=== PATIENT | male | born 1950 | race Caucasian/White ===

== ENCOUNTER 2021-01-24 06:19 | Outpatient (REF) | payer MEDICARE, SELFPAY ==
[2021-01-24 07:42] LABS: Glucose Urine UA NEG (NEG); Leukocyte Esterase Urine NEG (NEG); Nitrite Urine NEG (NEG); Specific Gravity - Urine 1.025 (1.005-1.025); Urine Blood NEG (NEG); Urine Ketones NEG (NEG); Urine Protein NEG (NEG-TRACE)
[2021-01-24 07:43] LABS: MANUAL DIFF FLAG NO
[2021-01-24 07:48] LABS: Basophils Percent Auto 0.5 % (0-2); Eosinophils Absolute Auto 0.2 X10*3/uL (0.0-0.4); Eosinophils Percent Auto 3.7 % (0-4); Hematocrit 42.2 % (42-52); Hemoglobin 13.8 g/dl (14.0-18.0); Imm Gran Abs Auto 0.05 X10*3/uL (0.00-0.03); Imm Gran Pct Auto 0.8 % (0.0-0.4); Lymphocytes Absolute Auto 1.4 X10*3/uL (1.2-4.9); Mean Corpuscular HGB Conc 32.7 g/dl (31.0-36.0); Mean Corpuscular Hemoglobin 29.8 pg (27.0-33.0); Mean Corpuscular Volume 91.1 fL (80-98); Mean Platelet Volume 8.5 fL (9.4-12.4); Monocytes Absolute Auto 0.8 X10*3/uL (0.1-1.2); Monocytes Percent Auto 12.6 % (2-11); Neutrophils Absolute Auto 3.5 X10*3/uL (2.0-8.3); Neutrophils Percent Auto 59.4 % (45-73); Platelet Count 302 X10*3/uL (160-400); Red Blood Count 4.63 X10*6/uL (4.60-5.80)
[2021-01-24 07:53] LABS: Estimated Average Glucose 105 mg/dL; Hemoglobin A1c % 5.3 %
[2021-01-24 07:57] LABS: Appearance Urine CLEAR; Color Urine YELLOW
[2021-01-24 08:00] LABS: RBC Urine 0 /HPF (0); Sperm Urine NOTED; WBC Urine 0 /HPF (0-4)
[2021-01-24 08:09] LABS: Alanine Aminotransferase 18 U/L (0-40); Alkaline Phosphatase 65 U/L (39-117); Anion Gap 12 (12-20); Aspartate Amino Transferase 20 U/L (5-37); Bilirubin Total 0.4 mg/dL (0.0-1.0); Blood Urea Nitrogen 26 mg/dL (9-16); Calcium 8.9 mg/dL (8.4-10.2); Carbon Dioxide 28 mmol/L (22-29); Chloride 104 mmol/L (96-108); Cholesterol 200 mg/dL; Estimated Glomerular Filt Rate > 60; Glucose Random 106 mg/dL (60-115); HDL Cholesterol 58 mg/dL; LDL Cholesterol Calculated 132 mg/dl; Potassium 4.6 mmol/L (3.3-5.1); Sodium 139 mmol/L (135-145); Total Protein 6.6 g/dL (6.5-8.0); Triglycerides 53 mg/dL
[2021-01-24 08:31] LABS: Free T4 (Free Thyroxine) 0.82 ng/dL (0.71-1.85); Thyroid Stimulating Hormone 2.22 uIU/mL (0.32-4.0)
[2021-01-25 18:05] LABS: Folate > 20.0 ng/mL (> or = 4.0); Vitamin B12 304 pg/mL (200-900)
== END 2021-01-24 06:20 | disposition home or self-care (01) ==
LOC: HO.LAB 06:19
PROVIDERS: PCP Internal Medicine; Visit Provider Internal Medicine
DX: R73.02 Impaired glucose tolerance (oral) (principal); I10 Essential (primary) hypertension; E78.00 Pure hypercholesterolemia, unspecified
CPT/HCPCS: 36415; 80053; 80061; 81001; 82607; 82746; 83036; 84153; 84439; 84443; 85025

== ENCOUNTER 2022-02-25 07:07 | Outpatient (REF) | payer MEDICARE, SELFPAY ==
[2022-02-25 07:21] LABS: MANUAL DIFF FLAG NO
[2022-02-25 07:34] LABS: Basophils Percent Auto 0.7 % (0-2); Eosinophils Absolute Auto 0.2 X10*3/uL (0.0-0.4); Eosinophils Percent Auto 4.2 % (0-4); Hematocrit 42.6 % (42.0-52.0); Imm Gran Abs Auto 0.03 X10*3/uL (0.00-0.03); Imm Gran Pct Auto 0.5 % (0.0-0.4); Immature Retic Fraction 5.9 % (2.3-13.4); Lymphocytes Absolute Auto 1.4 X10*3/uL (1.2-4.9); Lymphocytes Percent Auto 25.2 % (20-40); Mean Corpuscular HGB Conc 32.9 g/dl (31.0-36.0); Mean Corpuscular Hemoglobin 29.9 pg (27.0-33.0); Mean Corpuscular Volume 90.8 fL (80.0-98.0); Mean Platelet Volume 8.3 fL (9.4-12.4); Monocytes Absolute Auto 0.7 X10*3/uL (0.1-1.2); Monocytes Percent Auto 12.9 % (2-11); Neutrophils Absolute Auto 3.2 x10*3/uL (2.0-8.3); Neutrophils Percent Auto 56.5 % (45-73); Platelet Count 284 X10*3/uL (160-400); Red Blood Count 4.69 X10*6/uL (4.60-5.80); Red Cell Distribution Width 12.4 % (11.0-16.0); Retic HGB Equivalent 34.6 pg (30.0-35.0); Reticulocyte Percent 1.2 % (0.5-1.8); Reticulocytes Absolute 0.058 X10*6/uL (0.026-0.095); White Blood Count 5.7 X10*3/uL (4.8-10.8)
[2022-02-25 07:47] LABS: Alanine Aminotransferase 28 U/L (0-40); Albumin Level 3.9 g/dL (3.5-5.0); Alkaline Phosphatase 66 U/L (39-117); Anion Gap 12 (12-20); Aspartate Amino Transferase 23 U/L (5-37); Bilirubin Total 0.6 mg/dL (0.0-1.0); Blood Urea Nitrogen 20 mg/dL (9-16); Calcium 9.6 mg/dL (8.4-10.2); Carbon Dioxide 27 mmol/L (22-29); Chloride 107 mmol/L (96-108); Cholesterol 209 mg/dL; Estimated Glomerular Filt Rate > 60; Glucose Random 107 mg/dL (60-115); HDL Cholesterol 54 mg/dL; Iron 92 mcg/dL (45-160); LDL Cholesterol Calculated 144 mg/dl; Percent Iron Saturation 37 % (15-50); Potassium 4.6 mmol/L (3.3-5.1); Sodium 141 mmol/L (135-145); Total Iron Binding Capacity 247 mcg/dL (228-428); Total Protein 6.6 g/dL (6.5-8.0); Triglycerides 59 mg/dL; Unsaturated Iron Binding 155 ug/dL
[2022-02-25 08:08] LABS: Ferritin 566 ng/mL (20-250); Thyroid Stimulating Hormone 1.85 uIU/mL (0.32-4.0)
[2022-02-25 08:23] LABS: Folate 19.5 ng/mL (> or = 4.0); Vitamin B12 343 pg/mL (200-900)
== END 2022-02-25 07:08 | disposition home or self-care (01) ==
LOC: HO.LAB 07:07
PROVIDERS: PCP Internal Medicine; Visit Provider Internal Medicine
DX: I10 Essential (primary) hypertension (principal); D64.9 Anemia, unspecified; E78.00 Pure hypercholesterolemia, unspecified; Z12.5 Encounter for screening for malignant neoplasm of prostate
CPT/HCPCS: 36415; 80053; 80061; 82607; 82728; 82746; 83540; 84153; 84439; 84443; 85025; 85045

== ENCOUNTER 2023-07-08 09:01 | Outpatient (AMB) | payer MEDICARE, SELFPAY ==
[2023-07-08 09:03] VITALS: BP 132/78; PULSE 85; O2SAT 100; BMI 27.9
--- NOTE | 2023-07-08 09:03 | A.OFFVIS_ITS ---
Intake Vital Signs 07/08/23 09:03 Height 5 ft 9 in Weight 189 lb BMI 27.9 BP 132/78 Blood Pressure Location Lt brachial Position Sitting Pulse 85 Pulse Source Pulse Oximeter Temp Source Skin Pulse Oximetry (%) 100 Oxygen Delivery Method Room Air Intake Visit Reasons: AWV Intake Note: Patient is here for an Annual Wellness Visit. Investment Director Required: No Allergies No Known Allergies Allergy (Verified 07/08/23 09:12) Medication List - Last Reconciled 07/08/23 by MATILDE Lopez cetirizine (Zyrtec) 10 mg PO DAILY PRN lisinopril-hydrochlorothiazide 20-25 mg 1 tab PO DAILY 90 days multivitamin 1 tab PO DAILY Fall Risk Assessment Fall risk assessment: No Falls in past year Date Fall Risk Assessed: 03/11/22 HPI AWV HPI Details Patient is a 73-year-old male who presents today for initial wellness visit. Patient Dr. Coles. Today we discussed patient's need for diabetes screening and prostate cancer screening. Up-to-date with immunizations. [place] negative 10/2021. [place] of care was reviewed with the patient and he was provided a screening schedule. Patient has a healthcare proxy in place and he was provided with a MOLST form. [facility] Medical History (Updated 07/08/23 @ 09:28 by MATILDE Lopez) Hypercholesterolemia Hypertension Impaired glucose tolerance Left flank discomfort Renal calculi Rotator cuff tear Upper respiratory infection Surgical History History of elbow surgery History of repair of rotator cuff Family History Father Leukemia Mother No problems noted. Maternal Grandfather Myocardial infarction CVD (cardiovascular disease) Social History Housing: House Alcohol intake: current Alcohol intake frequency: a few times a month Alcohol type: beer Patient Tobacco Use Status: Current someday Tobacco user Tobacco use type: Pipe e-Cigarette/Vaping Use: Never Used Second Hand Smoke Exposure: No service: No Current occupational status: retired Cognitive needs: No Hearing needs: No Vision needs: Yes Questionnaire Medicare Wellness Checkup [age] What gender do you identify with?: male During the past 4 weeks, how much have you been bothered by emotional problems such as feeling anxious, depressed, irritable, sad or downhearted, and blue?: not at all During the past 4 weeks, has your physical & emotional health limited your social activities with family, friends, neighbors, or groups?: not at all During the past 4 weeks, how much bodily pain have you generally had?: no pain During the past 4 weeks, was someone available to help you if you needed & wanted help?: yes, as much as I wanted During the past 4 weeks, what was the hardest physical activity you could do for at least 2 minutes?: heavy Can you get to places out of walking distance without help? (For eg., can you travel alone on buses, taxis or drive your car?): Yes Can you go shopping for groceries or clothes without someone's help?: Yes Can you prepare your own meals?: Yes Can you do your housework without help?: Yes Because of any health problems, do you need the help of another person with your personal care needs such as eating, bathing, dressing or getting around the house?: No Can you handle your own money without help?: Yes During the past 4 weeks, how would you rate your health in general?: excellent During the past 4 weeks how have things been going for you?: very well; could hardly better Are you having difficulties driving your car?: no Do you always fasten your seat belt when you are in a car?: yes, sometimes During past 4 weeks, have you been bothered by the following: never: Falling or dizzy when standing up, Trouble eating well?, Teeth or denture problems?, Problems using the telephone? and Tiredness or fatigue? and seldom: Sexual problems? Have you fallen 2 or more times in the past year?: No Are you afraid of falling?: No Are you a smoker?: no During the past 4 weeks, how many drinks of wine, beer, or other alcoholic beverages did you have?: 2-5 drinks per week Do you exercise for about 20 minutes 3 or more times a week?: yes, most of the time Have you been given information to help with the following?: no: Hazards in your house that might hurt you? and no: Keeping track of your medications? How often do you have trouble taking medicines the way you have been told to take them?: I always take medicine as prescribed How confident are you that you can control & manage most of your health problems?: very confident What is your race?: White Mini Mental State Exam (MMSE) Orientation What is the (year) (season) (date) (day) (month)?: year, season, date, day and month Score Score: 5 Activity of Daily Living Bathing - sponge bath, tub bath or shower: receives no assistance (gets in/out by self, if usual bathing means Dressing - getting clothes from closets & drawers, including inner/outer garments & fasteners.: gets clothes & gets completely dressed without help Toileting - going to the 'toilet room' for urine/bowel elimination & cleaning self/arranging clothes: goes to toilet room, cleans self, arranges clothes without help Transfer: moves in & out of bed and chair without help (may use support object) Continence: controls urination/bowel movements completely by self Feeding: feeds self without help Total Score: 0 Information obtained from: patient Using telephone: independent Traveling: independent Shopping: independent Preparing meals: independent Housework: independent Taking medicine: independent Managing money: independent PHQ-9 Over the last 2 weeks, how often have you been bothered by any of the following problems? 1. Little interest or pleasure in doing things: not at all 2. Feeling down, depressed, or hopeless: not at all 3. Trouble falling or staying asleep, or sleeping too much: not at all 4. Feeling tired or having little energy: not at all 5. Poor appetite or overeating: not at all 6. Feeling bad about yourself - or that you are a failure or have let yourself or your family down: not at all 7. Trouble concentrating on things, such as reading the newspaper or watching television: not at all 8. Moving or speaking so slowly that other people could have noticed. Or the opposite - being so fidgety or restless that you have been moving around a lot more than usual: not at all 9. Thoughts that you would be better off or of hurting yourself in some way: not at all Total score: 0 Depression Screening Interpretation: Negative 43327 - PHQ-9 Billing: Yes Source: Developed by Drs. Cristi Hurtado, Ellis Robb and colleagues, with an educational oleg from [employer]. MICHELLE-7 AMB Questionnaire MICHELLE-7 Date MICHELLE - 7 assessed: 07/08/23 Feeling nervous, anxious, or on edge: 0 = Not at all Not being able to stop or control worryin = Not at all Worrying too much about different things: 0 = Not at all Trouble relaxin = Not at all Being so restless that it is hard to sit still: 0 = Not at all Becoming easily annoyed or irritable: 0 = Not at all Feeling afraid as if something awful might happen: 0 = Not at all Total MICHELLE-7 score (0-4 normal; 5-9 mild; 10-14 moderate; 15-21 severe): 0 Source: Developed by Drs. Cristi Hurtado, Ellis Robb and colleagues, with an educational oleg from [employer]. MICHELLE-7 Assessment Billing MICHELLE-7 Assessment Tool: MICHELLE-7 Assessment 54698 AUDIT C Alcohol Use Questionnaire (AUDIT-C) 1. How often do you have a drink containing alcohol?: 4 or more times a week 2. How many drinks containing alcohol do you have on a typical day when you are drinking?: 1 or 2 3. How often do you have six or more drinks on one occasion?: Never Total Score: 4 Score Reviewed/Action Taken: Yes Thrive Questionnaire Date Thrive assessed: 07/08/23 I am a: Patient What is your living situation today?: I have a steady place to live Within the past 12 months, did the food you bought not last and you didn't have the money to get more?: Never true Within the past 12 months, did you worry whether your food would run out before you got money to buy more?: Never true Currently or been in a relationship where the following occur: no concerns reported Physical Exam Vital Signs: Last Vital Signs Pulse 85 07/08/23 09:03 BP 132/78 07/08/23 09:03 Pulse Ox 100 07/08/23 09:03 Oxygen Delivery Method Room Air 07/08/23 09:03 BMI result Body Mass Index 27.9 Const General: cooperative and no acute distress Orientation/consciousness: patient oriented x3 HEENT Other: Whisper test: fail Neuro Other: Balance: Normal Get up and walk: able to Romberg: negative Tandem gait: able to General: patient oriented x3 Assessment & Plan Assessment & Plan (1) Screening for prostate cancer: Code(s): Z12.5 - Encounter for screening for malignant neoplasm of prostate (2) Hypertension: Code(s): I10 - Essential (primary) hypertension Qualifiers: Hypertension type: essential hypertension Qualified Code(s): I10 - Essential (primary) hypertension Plan: Continue current treatment Low-sodium diet (3) Hypercholesterolemia: Code(s): E78.00 - Pure hypercholesterolemia, unspecified Plan: Continue low-cholesterol diet (4) Impaired glucose tolerance: Code(s): R73.02 - Impaired glucose tolerance (oral) Plan: Fasting blood work ordered (5) Adult general medical exam: Code(s): Z00.00 - Encounter for general adult medical examination without abnormal findings Orders: Orders Basic Metabolic Panel Fasting Today R73.02 - Impaired glucose tolerance (oral) Prostate Specific Antigen Today Z12.5 - Encounter for screening for malignant neoplasm of prostate Quality Reporting (2019) Fall Risk Screening ([facility]) Last assessed Fall Risk: 03/11/22 Fall risk assessment: No Falls in past year Depression/Bipolar (159/160/161/177) PHQ-9: Total score: 0 Coding Level of Care Code Medicare First (G0438) Diagnoses Screening for prostate cancer Z12.5 Hypertension I10 Hypertension type: essential hypertension Hypercholesterolemia E78.00 Impaired glucose tolerance R73.02 Adult general medical exam Z00.00 CPT Codes Advance Care Planning - Time spent: 1-15 minutes, not on file ([id number]) Additional Codes MICHELLE-7 Assessment Billing - MICHELLE-7 Assessment Tool: MICHELLE-7 Assessment 43407 ([id number]) Advance Care Planning Advance Care Planning discussion: Exists, not on file Date of discussion: 07/08/23 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
== END 2023-07-08 09:26 | disposition home or self-care (01) ==
PROVIDERS: Visit Provider Nurse Practitioner Family
DX: Z00.00 Encounter for general adult medical examination without abnormal findings (principal); I10 Essential (primary) hypertension; Z12.5 Encounter for screening for malignant neoplasm of prostate; E78.00 Pure hypercholesterolemia, unspecified; R73.02 Impaired glucose tolerance (oral)
CPT/HCPCS: 1124F; G0438; G0439

== ENCOUNTER 2024-01-12 05:55 | Outpatient (REF) | payer MEDICARE, SELFPAY ==
[2024-01-12 08:16] LABS: Anion Gap 10 (12-20); Blood Urea Nitrogen 20 mg/dL (9-16); Calcium 9.5 mg/dL (8.4-10.2); Carbon Dioxide 28 mmol/L (22-29); Chloride 103 mmol/L (96-108); Estimated Glomerular Filt Rate > 60; Glucose Fasting 99 mg/dL (60-99); Potassium 4.3 mmol/L (3.3-5.1); Sodium 137 mmol/L (135-145)
[2024-01-12 08:31] LABS: Prostate Specific Antigen 2.75 ng/mL (<0.05-4.0)
== END 2024-01-12 05:56 | disposition home or self-care (01) ==
LOC: HO.LAB 05:55
PROVIDERS: PCP Internal Medicine; Visit Provider Nurse Practitioner Family
DX: Z12.5 Encounter for screening for malignant neoplasm of prostate (principal); R73.02 Impaired glucose tolerance (oral)
CPT/HCPCS: 36415; 80048; 84153

== ENCOUNTER 2024-01-14 08:25 | Outpatient (AMB) | payer MEDICARE, SELFPAY ==
[2024-01-14 08:32] VITALS: BP 144/88; PULSE 80; O2SAT 99; BMI 28.2
--- NOTE | 2024-01-14 08:32 | A.OFFPC_ITS ---
Vital Signs 01/14/24 08:32 Height 5 ft 9 in Weight 191 lb 0.2 oz BMI 28.2 BP 144/88 H Blood Pressure Location Lt brachial Position Sitting Pulse 80 Pulse Source Pulse Oximeter Pulse Oximetry (%) 99 Oxygen Delivery Method Room Air Intake Visit Reasons: 6mon f/u Intake Note: Patient is here to follow up on 6 month Senior Consultant Required: No Allergies No Known Allergies Allergy (Verified 01/14/24 08:33) Medication List - Last Reconciled 01/14/24 by Rodolfo Coles MD cetirizine (Zyrtec) 10 mg PO DAILY PRN lisinopril-hydrochlorothiazide 20-25 mg 1 tab PO DAILY 90 days multivitamin 1 tab PO DAILY Tobacco use date assessed: 01/14/24 Fall risk assessment: No Falls in past year Last assessed Fall Risk: 01/14/24 Dental Screening Dental Screen Date: 01/14/24 Did you have a dental visit in the last 12 months?: Yes Did you have a dental problem in the last 6 months where you did not have access to dental care?: No Was dental information given to patient?: Patient has dentist HPI 6mon f/u HPI Details 73-year-old overweight male with a histo ry of impaired glucose tolerance hypertension hypercholesterolemia last seen in 2021. Patient is due for the Cologuard review of the notes patient has been seen by the nurse practitioner for annual well visit in June 2023 [facility] Medical History (Updated 01/14/24 @ 08:43 by Rodolfo Coles MD) Screening for prostate cancer Left flank discomfort Tick bite Upper respiratory infection Impaired glucose tolerance Hypertension Hypercholesterolemia Renal calculi Rotator cuff tear Surgical History History of elbow surgery History of repair of rotator cuff Family History Father Leukemia Mother No problems noted. Maternal Grandfather Myocardial infarction CVD (cardiovascular disease) Social History Housing: House Alcohol intake: current Alcohol intake frequency: a few times a month Alcohol type: beer Patient Tobacco Use Status: Current someday Tobacco user Tobacco use type: Pipe e-Cigarette/Vaping Use: Never Used Second Hand Smoke Exposure: No service: No Current occupational status: retired Cognitive needs: No Hearing needs: No Vision needs: Yes Questionnaire PHQ-9 Over the last 2 weeks, how often have you been bothered by any of the following problems? 1. Little interest or pleasure in doing things: not at all 2. Feeling down, depressed, or hopeless: not at all 3. Trouble falling or staying asleep, or sleeping too much: not at all 4. Feeling tired or having little energy: not at all 5. Poor appetite or overeating: not at all 6. Feeling bad about yourself - or that you are a failure or have let yourself or your family down: not at all 7. Trouble concentrating on things, such as reading the newspaper or watching television: not at all 8. Moving or speaking so slowly that other people could have noticed. Or the opposite - being so fidgety or restless that you have been moving around a lot more than usual: not at all 9. Thoughts that you would be better off or of hurting yourself in some way: not at all Total score: 0 Depression Screening Interpretation: Negative Depression Screening Done: Yes Source: Developed by Drs. Cristi Hurtado, Arline Ray, Ellis Ricketts and colleagues, with an educational oleg from [employer]. Thrive Questionnaire Date Thrive assessed: 07/08/23 AUDIT C Alcohol Use Questionnaire (AUDIT-C) 1. How often do you have a drink containing alcohol?: 4 or more times a week 2. How many drinks containing alcohol do you have on a typical day when you are drinking?: 1 or 2 3. How often do you have six or more drinks on one occasion?: Never Total Score: 4 Score Reviewed/Action Taken: Yes MICHELLE-7 AMB Questionnaire MICHELLE-7 Date MICHELLE - 7 assessed: 01/14/24 Feeling nervous, anxious, or on edge: 0 = Not at all Not being able to stop or control worryin = Not at all Worrying too much about different things: 0 = Not at all Trouble relaxin = Not at all Being so restless that it is hard to sit still: 0 = Not at all Becoming easily annoyed or irritable: 0 = Not at all Feeling afraid as if something awful might happen: 0 = Not at all Total MICHELLE-7 score (0-4 normal; 5-9 mild; 10-14 moderate; 15-21 severe): 0 Source: Developed by Drs. Cristi Hurtado, Arline Ray, Ellis Ricketts and colleagues, with an educational oleg from [employer]. Physical exam (Primary Care) Vital Signs: Last Vital Signs Pulse 80 01/14/24 08:32 BP 144/88 H 01/14/24 08:32 Pulse Ox 99 01/14/24 08:32 Oxygen Delivery Method Room Air 01/14/24 08:32 BMI result Body Mass Index 28.2 Tobacco/Smoking Status: Tobacco use Status Tobacco use date assessed 01/14/24 01/14/24 08:35 Patient Tobacco Use Status Current someday Tobacco 01/14/24 08:35 Tobacco use type Pipe 01/14/24 08:35 e-Cigarette/Vaping Use Never Used 01/14/24 08:35 PHQ-9: PHQ-9 Score PHQ-9: Total score 0 01/14/24 08:45 Depression Screening Interpretation: Negative Thrive Assessment: Date of Thrive Assessment Date Thrive assessed 07/08/23 01/14/24 08:35 Const General: alert; No acute distress Eyes Conjunctivae: conjunctivae normal Resp Auscultation: clear to auscultation bilaterally Cardio Rate: regular rate Rhythm: regular rhythm GI Inspection: Yes normal to inspection Extrem General: Yes normal to inspection and No edema Assessment and Plan Assessment & Plan (1) Impaired glucose tolerance: Code(s): R73.02 - Impaired glucose tolerance (oral) Plan: Decrease the amount of carbohydrate intake, pasta, bread, rice and potatoes are all sugar and that is aside from all the sweet stuff, remember that fruits are good but they are Sweet also. Will request for blood work (2) Hypertension: Code(s): I10 - Essential (primary) hypertension Qualifiers: Hypertension type: essential hypertension Qualified Code(s): I10 - Essential (primary) hypertension Plan: Continue with blood pressure medication. Decrease salt intake and exercise presently on lisinopril hydrochlorothiazide 20/25 once a day. high BP here advised to monitor the BP at home (3) Hypercholesterolemia: Code(s): E78.00 - Pure hypercholesterolemia, unspecified Plan: Avoid fried foods, chicken skin, eggs, butter margarine, pastries and meat. Be it pork or beef they have a lot of cholesterol LDL goal of less than 130 and triglyceride of less than 150 (4) Overweight (BMI 25.0-29.9): Code(s): E66.3 - Overweight Plan: Diet and exercise (5) Colonoscopy refused: Comment: Cologuard negative 2018 Code(s): Z53.20 - Procedure and treatment not carried out because of patient's decision for unspecified reasons (6) Colon cancer screening: Code(s): Z12.11 - Encounter for screening for malignant neoplasm of colon Plan: Reminded about Cologuard test Orders: Orders Vitamin B12 and Folate Today R73.02 - Impaired glucose tolerance (oral) Lipid Panel Today E78.00 - Pure hypercholesterolemia, unspecified, R73.02 - Impaired glucose tolerance (oral) Complete Blood Count Auto Diff Today R73.02 - Impaired glucose tolerance (oral) Comprehensive Met. Panel Today R73.02 - Impaired glucose tolerance (oral) Hemoglobin A1c Today R73.02 - Impaired glucose tolerance (oral) Free T4 (Free Thyroxine) Today R73.02 - Impaired glucose tolerance (oral) Thyroid Stimulating Hormone Today R73.02 - Impaired glucose tolerance (oral) CA echo transthoracic complete Today I10 - Essential (primary) hypertension Medications: Refilled lisinopril-hydrochlorothiazide 20-25 mg 1 tab PO DAILY 90 days 90 tabs 2RF I10 - Essential (primary) hypertension Coding Level of Care Code Est Pt Level 4 (86160) Diagnoses Impaired glucose tolerance R73.02 Essential hypertension I10 Hypertension type: essential hypertension Hypercholesterolemia E78.00 Overweight (BMI 25.0-29.9) E66.3 Colonoscopy refused Z53.20 Colon cancer screening Z12.
== END 2024-01-14 09:09 | disposition home or self-care (01) ==
PROVIDERS: PCP Internal Medicine; Visit Provider Internal Medicine
DX: R73.02 Impaired glucose tolerance (oral) (principal); I10 Essential (primary) hypertension; E78.00 Pure hypercholesterolemia, unspecified; E66.3 Overweight; Z53.20 Procedure and treatment not carried out because of patient's decision for unspecified reasons; Z12.11 Encounter for screening for malignant neoplasm of colon
CPT/HCPCS: 99214

== ENCOUNTER 2024-04-20 08:21 | Outpatient (AMB) | payer MEDICARE, SELFPAY ==
--- NOTE | 2024-04-20 08:25 | MHC.PC.OV ---
Vital Signs 04/20/24 08:26 Height 5 ft 9 in Weight 189 lb 6 oz BMI 28.0 BP 130/82 Blood Pressure Location Lt brachial Position Sitting Pulse 84 Pulse Source Pulse Oximeter Pulse Oximetry (%) 94 Oxygen Delivery Method Room Air Intake Visit Reasons: rash on body Intake Note: Patient is here to follow up on Rash on body. 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 Marketing Specialist Required: No Product Line Manager: Not Required per policy Accompanied by: Self / Same As Patient Allergies No Known Allergies Allergy (Verified 04/20/24 08:26) Medication List - Last Reconciled 04/20/24 by Jose Oneil MD cetirizine (Zyrtec) 10 mg PO DAILY PRN lisinopril-hydrochlorothiazide 20-25 mg 1 tab PO DAILY 90 days multivitamin 1 tab PO DAILY Tobacco use date assessed: 04/20/24 Fall risk assessment: No Falls in past year Last assessed Fall Risk: 04/20/24 Dental Screening Dental Screen Date: 01/14/24 HPI rash on body HPI Details 73-year-old male presents to the office for a sick visit. Patient has developed a rash on both forearms and the chest for the past few weeks. He was at an urgent care facility last week and was given prednisone. Symptoms were improving while on the medication but returned when the medication was over. In addition patient has been working out in the sun without his shirt on. Experiencing discomfort of itching over the chest. [facility] Medical History (Updated 01/14/24 @ 08:43 by Rodolfo Coles MD) Screening for prostate cancer Left flank discomfort Tick bite Upper respiratory infection Impaired glucose tolerance Hypertension Hypercholesterolemia Renal calculi Rotator cuff tear Surgical History History of elbow surgery History of repair of rotator cuff Family History Father Leukemia Mother No problems noted. Maternal Grandfather Myocardial infarction CVD (cardiovascular disease) Social History Housing: House Alcohol intake: current Alcohol intake frequency: a few times a month Alcohol type: beer Patient Tobacco Use Status: Current someday Tobacco user Tobacco use type: Pipe e-Cigarette/Vaping Use: Never Used Second Hand Smoke Exposure: Yes service: No Current occupational status: retired Cognitive needs: No Hearing needs: No Vision needs: Yes (glasses) Questionnaire Thrive Questionnaire Date Thrive assessed: 07/08/23 MICHELLE-7 AMB Questionnaire MICHELLE-7 Date MICHELLE - 7 assessed: 01/14/24 Source: Developed by Drs. Cristi Hurtado, Arline Ray, Ellis Ricketts and colleagues, with an educational oleg from [employer]. Physical exam (Primary Care) Vital Signs: Last Vital Signs Pulse 84 04/20/24 08:26 BP 130/82 04/20/24 08:26 Pulse Ox 94 04/20/24 08:26 Oxygen Delivery Method Room Air 04/20/24 08:26 BMI result Body Mass Index 28.0 Tobacco/Smoking Status: Tobacco use Status Tobacco use date assessed 04/20/24 04/20/24 08:30 Patient Tobacco Use Status Current someday Tobacco 04/20/24 08:30 Tobacco use type Pipe 04/20/24 08:30 e-Cigarette/Vaping Use Never Used 04/20/24 08:30 Thrive Assessment: Date of Thrive Assessment Date Thrive assessed 07/08/23 04/20/24 08:30 Skin Other: Erythematous rash over the forearms, no vesicles or pustules. Similar rash over the chest. Assessment and Plan Assessment & Plan (1) Plant dermatitis: Code(s): L25.5 - Unspecified contact dermatitis due to plants, except food Plan: Tapering dose of prednisone. Symptoms could be a combination of sunburn and poison mike. Patient was advised to wear covered clothing till all symptoms subside. In addition to prednisone, I advised him to use calamine lotion. Coding Level of Care Code Est Pt Level 3 (47361) Diagnoses Plant dermatitis L25.5
[2024-04-20 08:26] VITALS: BP 130/82; PULSE 84; O2SAT 94; BMI 28.0
== END 2024-04-20 08:44 | disposition home or self-care (01) ==
PROVIDERS: PCP Internal Medicine; Visit Provider Internal Medicine
DX: L25.5 Unspecified contact dermatitis due to plants, except food (principal)
CPT/HCPCS: 99213

== ENCOUNTER 2024-07-14 09:09 | Outpatient (AMB) | payer MEDICARE, SELFPAY ==
[2024-07-14 09:12] VITALS: BP 130/70; PULSE 70; O2SAT 98; BMI 28.4
--- NOTE | 2024-07-14 09:13 | AM.OFFVISMDC ---
Intake Vital Signs 07/14/24 09:12 Height 5 ft 7.5 in Weight 184 lb BMI 28.4 BP 130/70 Blood Pressure Location Lt brachial Position Sitting Pulse 70 Pulse Source Pulse Oximeter Pulse Oximetry (%) 98 Oxygen Delivery Method Room Air Intake Visit Reasons: HANNAH [id number] Allergies No Known Allergies Allergy (Verified 07/14/24 09:13) Medication List - Last Reconciled 07/14/24 by Rodolfo Coles MD ceramides 1,3,4-GN-[id number] (CeraVe Foaming Facial topical cleanser) 1 appl topical BID cetirizine (Zyrtec) 10 mg PO DAILY PRN lisinopril-hydrochlorothiazide 20-25 mg 1 tab PO DAILY 90 days multivitamin 1 tab PO DAILY triamcinolone acetonide 0.1% 1 appl topical DAILY HPI HANNAH G0439 HPI Details 74-year-old overweight male with hypertension hypercholesterolemia impaired glucose tolerance last seen in December 2023 patient is here for an annual well visit. Seen in April for a rash treated with steroid. wass told eczema foaming cleasning bar and trimacinolone crea [facility] Medical History (Updated 07/14/24 @ 18:19 by Rodolfo Coles MD) Screening for prostate cancer Left flank discomfort Tick bite Upper respiratory infection Impaired glucose tolerance Hypertension Hypercholesterolemia Renal calculi Rotator cuff tear Surgical History History of elbow surgery History of repair of rotator cuff Family History Father Leukemia Mother No problems noted. Maternal Grandfather Myocardial infarction CVD (cardiovascular disease) Social History (Updated 07/14/24 @ 09:44 by Rodolfo Coles MD) Housing: House Alcohol intake: current Alcohol intake frequency: a few times a month Alcohol type: beer Comment: 1 beer QOD Patient Tobacco Use Status: Current someday Tobacco user Tobacco use type: Pipe Years Smoked: occ 2-3 x a day once a week e-Cigarette/Vaping Use: Never Used Second Hand Smoke Exposure: Yes service: No Current occupational status: retired Cognitive needs: No Hearing needs: No Vision needs: Yes (glasses) Questionnaire Medicare Wellness Checkup [age] What gender do you identify with?: male During the past 4 weeks, how much have you been bothered by emotional problems such as feeling anxious, depressed, irritable, sad or downhearted, and blue?: not at all During the past 4 weeks, has your physical & emotional health limited your social activities with family, friends, neighbors, or groups?: not at all During the past 4 weeks, how much bodily pain have you generally had?: no pain During the past 4 weeks, was someone available to help you if you needed & wanted help?: yes, as much as I wanted During the past 4 weeks, what was the hardest physical activity you could do for at least 2 minutes?: very heavy Can you get to places out of walking distance without help? (For eg., can you travel alone on buses, taxis or drive your car?): Yes Can you go shopping for groceries or clothes without someone's help?: Yes Can you prepare your own meals?: Yes Can you do your housework without help?: Yes Because of any health problems, do you need the help of another person with your personal care needs such as eating, bathing, dressing or getting around the house?: No Can you handle your own money without help?: Yes During the past 4 weeks, how would you rate your health in general?: excellent During the past 4 weeks how have things been going for you?: very well; could hardly better Are you having difficulties driving your car?: no Do you always fasten your seat belt when you are in a car?: yes, usually During past 4 weeks, have you been bothered by the following: never: Falling or dizzy when standing up, Sexual problems?, Trouble eating well?, Teeth or denture problems?, Problems using the telephone? and Tiredness or fatigue? Have you fallen 2 or more times in the past year?: No Are you afraid of falling?: No Are you a smoker?: no During the past 4 weeks, how many drinks of wine, beer, or other alcoholic beverages did you have?: 2-5 drinks per week Do you exercise for about 20 minutes 3 or more times a week?: no, I usually do not exercise this much Have you been given information to help with the following?: no: Hazards in your house that might hurt you? and no: Keeping track of your medications? How often do you have trouble taking medicines the way you have been told to take them?: I always take medicine as prescribed How confident are you that you can control & manage most of your health problems?: very confident What is your race?: White PHQ-9 Over the last 2 weeks, how often have you been bothered by any of the following problems? 1. Little interest or pleasure in doing things: not at all 2. Feeling down, depressed, or hopeless: not at all 3. Trouble falling or staying asleep, or sleeping too much: not at all 4. Feeling tired or having little energy: not at all 5. Poor appetite or overeating: not at all 6. Feeling bad about yourself - or that you are a failure or have let yourself or your family down: not at all 7. Trouble concentrating on things, such as reading the newspaper or watching television: not at all 8. Moving or speaking so slowly that other people could have noticed. Or the opposite - being so fidgety or restless that you have been moving around a lot more than usual: not at all 9. Thoughts that you would be better off or of hurting yourself in some way: not at all Total score: 0 Depression Screening Interpretation: Negative Depression Screening Done: Yes Source: Developed by Drs. Cristi Hurtado, Arline Ray, Ellis Ricketts and colleagues, with an educational oleg from [email or web address]. MICHELLE-7 AMB Questionnaire MICHELLE-7 Date MICHELLE - 7 assessed: 07/14/24 Feeling nervous, anxious, or on edge: 0 = Not at all Not being able to stop or control worryin = Not at all Worrying too much about different things: 0 = Not at all Trouble relaxin = Not at all Being so restless that it is hard to sit still: 0 = Not at all Becoming easily annoyed or irritable: 0 = Not at all Feeling afraid as if something awful might happen: 0 = Not at all Total MICHELLE-7 score (0-4 normal; 5-9 mild; 10-14 moderate; 15-21 severe): 0 Source: Developed by Drs. Cristi Hurtado, Arline Ray, Ellis Ricketts and colleagues, with an educational oleg from [email or web address]. Review of Systems Const Denies poor appetite and Denies weakness Eyes Denies no additional complaints ENT Reports Normal hearing present, Denies dizziness, Denies nasal congestion, Denies tinnitus and Denies sore throat Card Denies chest pain, Denies syncope, Denies rapid heart rate and Denies dyspnea Resp Denies cough and Denies dyspnea GI Denies change in stool character, Reports constipation, Denies diarrhea, Denies nausea and Denies vomiting Denies dysuria and Denies urinary frequency Neuro Reports Normal hearing present, Denies confusion, Denies dizziness, Denies syncope and Denies weakness Psych Denies confusion Physical Exam Vital Signs: Last Vital Signs Pulse 70 07/14/24 09:12 BP 130/70 07/14/24 09:12 Pulse Ox 98 07/14/24 09:12 Oxygen Delivery Method Room Air 07/14/24 09:12 BMI result Body Mass Index 28.4 Const General: No confusion Orientation/consciousness: No confusion HEENT Head: Yes normocephalic Ears: external ears normal and TM's normal bilaterally Face and sinus: Yes normal facial exam Mouth: moist mucous membranes Throat: Yes tonsils normal Eyes Conjunctivae: conjunctivae normal Pupils: Equal, round and reactive pupils present and Pupil accommodation reflex normal Direct Ophthalmoscopy: normal light reflex Neck Neck: No lymphadenopathy Thyroid: Thyroid normal Chest Chest palpation & inspection: normal inspection of the chest Resp Effort & Inspection: normal respiratory effort and no audible wheezes Auscultation: clear to auscultation bilaterally, no crackles, no wheezes and lung sounds not diminished Cardio Rate: regular rate Rhythm: regular rhythm Peripheral pulses: radial pulses present and dorsalis pedis present GI Palpation (GI): no masses Auscultation: normal bowel sounds and normoactive bowel sounds Rectal Exam - Male: Yes deferred Skin General skin exam: no rashes or lesions noted Rashes: no rashes Neuro General: No confusion Cranial nerves: Yes Equal, round and reactive pupils present and Yes Normal hearing present Cognition (Neuro): normal cognition Gait exam (Neuro): Normal gait present Motor exam (neuro): 5/5 motor strength present throughout Deep tendon reflexes (DTR's): Right brachioradialis reflex intensity grade: 2+, Left brachioradialis reflex intensity grade: 2+, Right patellar reflex intensity grade: 2+ and Left patellar reflex intensity grade: 2+ Extrem General: No edema Assessment & Plan Assessment & Plan (1) Annual wellness visit: Code(s): Z00.00 - Encounter for general adult medical examination without abnormal findings Plan: Patient is advised to eat healthy, keep well hydrated, keep active and have adequate sleep. (2) Overweight (BMI 25.0-29.9): Code(s): E66.3 - Overweight Plan: Diet and exercise (3) Hypertension: Code(s): I10 - Essential (primary) hypertension Qualifiers: Hypertension type: essential hypertension Qualified Code(s): I10 - Essential (primary) hypertension Plan: Continue with blood pressure medication. Decrease salt intake and exercise takes lisinopril hydrochlorothiazide once a day (4) Hypercholesterolemia: Code(s): E78.00 - Pure hypercholesterolemia, unspecified Plan: Avoid fried foods, chicken skin, eggs, butter margarine, pastries and meat. Be it pork or beef they have a lot of cholesterol LDL goal of less than 130 and triglyceride of less than 150 (5) Impaired glucose tolerance: Code(s): R73.02 - Impaired glucose tolerance (oral) Plan: Decrease the amount of carbohydrate intake, pasta, bread, rice and potatoes are all sugar and that is aside from all the sweet stuff, remember that fruits are good but they are Sweet also. Advised blood work (6) Hearing difficulty: Code(s): H91.90 - Unspecified hearing loss, unspecified ear Qualifiers: Laterality: bilateral Qualified Code(s): H91.93 - Unspecified hearing loss, bilateral Plan: Patient is referred for hearing test Orders: Referrals Speech and Hearing Referral H91.90 - Unspecified hearing loss, unspecified ear Quality Reporting (2019) Depression/Bipolar (159/160/161/177) PHQ-9: Total score: 0 Coding Level of Care Code Medicare Subsequent (G0439) Diagnoses Annual wellness visit Z00.00 Overweight (BMI 25.0-29.9) E66.3 Essential hypertension I10 Hypertension type: essential hypertension Hypercholesterolemia E78.00 Impaired glucose tolerance R73.02 Hearing difficulty of both ears H91.93 Laterality: bilateral
== END 2024-07-14 10:14 | disposition home or self-care (01) ==
PROVIDERS: PCP Internal Medicine; Visit Provider Internal Medicine
DX: Z00.00 Encounter for general adult medical examination without abnormal findings (principal); E66.3 Overweight; I10 Essential (primary) hypertension; E78.00 Pure hypercholesterolemia, unspecified; R73.02 Impaired glucose tolerance (oral); H91.93 Unspecified hearing loss, bilateral
CPT/HCPCS: G0439

== ENCOUNTER 2024-07-15 06:46 | Outpatient (REF) | payer MEDICARE, SELFPAY ==
[2024-07-15 07:05] LABS: MANUAL DIFF FLAG NO
[2024-07-15 07:16] LABS: Basophils Absolute Auto 0.1 X10*3/uL (0.0-0.2); Basophils Percent Auto 1.1 % (0-2); Eosinophils Absolute Auto 0.3 X10*3/uL (0.0-0.4); Eosinophils Percent Auto 4.3 % (0-4); Hematocrit 43.6 % (42.0-52.0); Hemoglobin 14.5 g/dl (14.0-18.0); Imm Gran Abs Auto 0.06 X10*3/uL (0.00-0.03); Imm Gran Pct Auto 0.9 % (0.0-0.4); Lymphocytes Absolute Auto 1.5 X10*3/uL (1.2-4.9); Lymphocytes Percent Auto 23.4 % (20-40); Mean Corpuscular HGB Conc 33.3 g/dl (31.0-36.0); Mean Corpuscular Hemoglobin 30.1 pg (27.0-33.0); Mean Corpuscular Volume 90.5 fL (80.0-98.0); Mean Platelet Volume 8.3 fL (9.4-12.4); Monocytes Absolute Auto 0.7 X10*3/uL (0.1-1.2); Monocytes Percent Auto 11.1 % (2-11); Neutrophils Absolute Auto 3.8 x10*3/uL (2.0-8.3); Neutrophils Percent Auto 59.2 % (45-73); Platelet Count 308 X10*3/uL (160-400); Red Blood Count 4.82 X10*6/uL (4.60-5.80); Red Cell Distribution Width 12.2 % (11.0-16.0); White Blood Count 6.5 X10*3/uL (4.8-10.8)
[2024-07-15 07:48] LABS: Alanine Aminotransferase 22 U/L (0-40); Albumin Level 3.9 g/dL (3.5-5.0); Alkaline Phosphatase 62 U/L (39-117); Anion Gap 13 (12-20); Aspartate Amino Transferase 20 U/L (5-37); Bilirubin Total 0.5 mg/dL (0.0-1.0); Blood Urea Nitrogen 23 mg/dL (9-16); Calcium 9.5 mg/dL (8.4-10.2); Carbon Dioxide 29 mmol/L (22-29); Chloride 105 mmol/L (96-108); Cholesterol 204 mg/dL (<200); Estimated Glomerular Filt Rate > 60; Glucose Random 106 mg/dL (60-115); HDL Cholesterol 57 mg/dL (>40); LDL Cholesterol Calculated 134 mg/dL (<100); Potassium 4.6 mmol/L (3.3-5.1); Sodium 142 mmol/L (135-145); Total Protein 6.9 g/dL (6.5-8.0); Triglycerides 67 mg/dL (<150)
[2024-07-15 08:05] LABS: Free T4 (Free Thyroxine) 0.73 ng/dL (0.71-1.85); Thyroid Stimulating Hormone 2.49 uIU/mL (0.32-4.0)
[2024-07-15 08:11] LABS: Estimated Average Glucose 103 mg/dL; Hemoglobin A1c % 5.2 % (<6.0)
[2024-07-15 08:18] LABS: Folate 15.3 ng/mL (> or = 4.0); Vitamin B12 410 pg/mL (200-900)
== END 2024-07-15 06:47 | disposition home or self-care (01) ==
LOC: HO.LAB 06:46
PROVIDERS: PCP Internal Medicine; Visit Provider Internal Medicine
DX: E78.00 Pure hypercholesterolemia, unspecified (principal); R73.02 Impaired glucose tolerance (oral)
CPT/HCPCS: 36415; 80053; 80061; 82607; 82746; 83036; 84439; 84443; 85025

== ENCOUNTER 2024-07-29 08:31 | Outpatient (REF) | payer MEDICARE, SELFPAY | END 2024-07-29 08:32 | disposition home or self-care (01) | LOC: HO.SH 08:31 | PROVIDERS: Visit Provider Internal Medicine | DX: Z01.118 Encounter for examination of ears and hearing with other abnormal findings (principal); H90.3 Sensorineural hearing loss, bilateral | CPT/HCPCS: 92557 ==

== ENCOUNTER 2025-07-18 08:33 | Outpatient (AMB) | payer MEDICARE, SELFPAY ==
[2025-07-18 08:37] VITALS: BP 124/68; PULSE 83; O2SAT 97; BMI 28.5
--- NOTE | 2025-07-18 08:37 | A.OFFPC_ITS ---
Vital Signs 07/18/25 08:37 Height 5 ft 7.5 in Weight 83.915 kg BMI 28.5 BP 124/68 Blood Pressure Location Lt brachial Position Sitting Pulse 83 Pulse Source Pulse Oximeter Pulse Oximetry (%) 97 Oxygen Delivery Method Room Air Intake Visit Reasons: Follow Up Allergies No Known Allergies Allergy (Verified 07/18/25 08:37) Tobacco use date assessed: 07/18/25 Fall risk assessment: No Falls in past year Last assessed Fall Risk: 07/18/25 Dental Screening Dental Screen Date: 07/18/25 Did you have a dental visit in the last 12 months?: Yes Did you have a dental problem in the last 6 months where you did not have access to dental care?: No Was dental information given to patient?: Patient has dentist [facility] Medical History (Updated 07/14/24 @ 18:19 by Rodolfo Coles MD) Screening for prostate cancer Left flank discomfort Tick bite Upper respiratory infection Impaired glucose tolerance Hypertension Hypercholesterolemia Renal calculi Rotator cuff tear Surgical History History of elbow surgery History of repair of rotator cuff Family History Father Leukemia Mother No problems noted. Maternal Grandfather Myocardial infarction CVD (cardiovascular disease) Social History (Updated 07/14/24 @ 09:44 by Rodolfo Coles MD) Housing: House Alcohol intake: current Alcohol intake frequency: a few times a month Alcohol type: beer Comment: 1 beer QOD Patient Tobacco Use Status: Current someday Tobacco user Tobacco use type: Pipe Years Smoked: occ 2-3 x a day once a week e-Cigarette/Vaping Use: Never Used Second Hand Smoke Exposure: Yes service: No Current occupational status: retired Cognitive needs: No Hearing needs: No Vision needs: Yes (glasses) Questionnaire PHQ-9 Over the last 2 weeks, how often have you been bothered by any of the following problems? 1. Little interest or pleasure in doing things: not at all 2. Feeling down, depressed, or hopeless: not at all 3. Trouble falling or staying asleep, or sleeping too much: not at all 4. Feeling tired or having little energy: not at all 5. Poor appetite or overeating: not at all 6. Feeling bad about yourself - or that you are a failure or have let yourself or your family down: not at all 7. Trouble concentrating on things, such as reading the newspaper or watching television: not at all 8. Moving or speaking so slowly that other people could have noticed. Or the opposite - being so fidgety or restless that you have been moving around a lot more than usual: not at all 9. Thoughts that you would be better off or of hurting yourself in some way: not at all Total score: 0 Depression Screening Interpretation: Negative Depression Screening Done: Yes Source: Developed by Drs. Cristi Hurtado, Arline Ray, Ellis Ricketts and colleagues, with an educational oleg from [employer]. Thrive Questionnaire Date Thrive assessed: 07/18/25 I am a: Patient What is your living situation today?: I have a steady place to live Within the past 12 months, did the food you bought not last and you didn't have the money to get more?: Never true Within the past 12 months, did you worry whether your food would run out before you got money to buy more?: Never true Do you have trouble paying for medicines?: No Do you have trouble getting transportation to medical appointments?: No Do you have trouble paying your heating and electricity bill?: No Do you have trouble taking care of your child, family member or friend?: No Do you have trouble with day-to-day activities such as bathing, preparing meals, shopping, managing finances, etc.?: No Are you currently unemployed and looking for a job?: No Are you interested in more education?: No Currently or been in a relationship where the following occur: No concerns reported THRIVE Score: 0 AUDIT C Alcohol Use Questionnaire (AUDIT-C) 1. How often do you have a drink containing alcohol?: 4 or more times a week 2. How many drinks containing alcohol do you have on a typical day when you are drinking?: 1 or 2 3. How often do you have six or more drinks on one occasion?: Never Total Score: 4 Score Reviewed/Action Taken: Yes MICHELLE-7 AMB Questionnaire MICHELLE-7 Date MICHELLE - 7 assessed: 07/18/25 Feeling nervous, anxious, or on edge: 0 = Not at all Not being able to stop or control worryin = Not at all Worrying too much about different things: 0 = Not at all Trouble relaxin = Not at all Being so restless that it is hard to sit still: 0 = Not at all Becoming easily annoyed or irritable: 0 = Not at all Feeling afraid as if something awful might happen: 0 = Not at all Total MICHELLE-7 score (0-4 normal; 5-9 mild; 10-14 moderate; 15-21 severe): 0 Source: Developed by Drs. Cristi Hurtado, Arline Ray, Ellis Ricketts and colleagues, with an educational oleg from [employer]. Review of Systems Const Denies poor appetite and Denies weakness Eyes Denies no additional complaints ENT Reports Normal hearing present, Denies dizziness, Denies nasal congestion, Denies tinnitus and Denies sore throat Card Denies chest pain, Denies syncope, Denies rapid heart rate and Denies dyspnea Resp Denies cough and Denies dyspnea GI Denies change in stool character, Reports constipation, Denies diarrhea, Denies nausea and Denies vomiting Denies dysuria and Denies urinary frequency Neuro Reports Normal hearing present, Denies confusion, Denies dizziness, Denies syncope and Denies weakness Psych Denies confusion Physical exam (Primary Care) Vital Signs: Last Vital Signs Pulse 83 07/18/25 08:37 BP 124/68 07/18/25 08:37 Pulse Ox 97 07/18/25 08:37 Oxygen Delivery Method Room Air 07/18/25 08:37 BMI result Body Mass Index 28.5 Tobacco/Smoking Status: Tobacco use Status Tobacco use date assessed 07/18/25 07/18/25 08:38 Patient Tobacco Use Status Current someday Tobacco 07/18/25 08:38 Tobacco use type Pipe 07/18/25 08:38 e-Cigarette/Vaping Use Never Used 07/18/25 08:38 PHQ-9: PHQ-9 Score PHQ-9: Total score 0 07/18/25 08:47 Depression Screening Interpretation: Negative Thrive Assessment: Date of Thrive Assessment Date Thrive assessed 07/18/25 07/18/25 08:38 Currently or been in a relationship where the following occur: No concerns reported Const General: alert and awake; No confusion Orientation/consciousness: No confusion HENMT Head: Yes normocephalic Ears: external ears normal and TM's normal bilaterally Face and sinus: Yes normal facial exam Mouth: moist mucous membranes Throat: Yes tonsils normal Eyes Conjunctivae: conjunctivae normal Pupils: Equal, round and reactive pupils present and Pupil accommodation reflex normal Direct Ophthalmoscopy: normal light reflex Neck Neck: No lymphadenopathy Thyroid: Thyroid normal Chest Chest palpation & inspection: normal inspection of the chest Resp Effort & Inspection: normal respiratory effort and no audible wheezes Auscultation: clear to auscultation bilaterally, no crackles, no wheezes and lung sounds not diminished Cardio Rate: regular rate Rhythm: regular rhythm Peripheral pulses: radial pulses present and dorsalis pedis present GI Palpation (GI): no masses Auscultation: normal bowel sounds and normoactive bowel sounds Rectal Exam - Male: Yes deferred Skin General skin exam: no rashes or lesions noted Rashes: no rashes Neuro General: deep tendon reflexes 2+ bilaterally and No confusion Cranial nerves: Yes Equal, round and reactive pupils present, Yes Midline tongue present, Yes Normal hearing present and Yes Ability to bilaterally elevate shoulders present Cognition (Neuro): normal cognition Gait exam (Neuro): Normal gait present Motor exam (neuro): 5/5 motor strength present throughout Deep tendon reflexes (DTR's): Right brachioradialis reflex intensity grade: 2+, Left brachioradialis reflex intensity grade: 2+, Right patellar reflex intensity grade: 2+ and Left patellar reflex intensity grade: 2+ Extrem General: No edema Coding Level of Care Code Est Pt Prev Care >65y(75659) Diagnoses Annual wellness visit Z00.00 Colon cancer screening Z12. Impaired glucose tolerance R73.02 Overweight (BMI 25.0-29.9) E66.3 Essential hypertension I10 Hypertension type: essential hypertension Hypercholesterolemia E78.00 Assessment & Plan Assessment & Plan (1) Annual wellness visit: Code(s): Z00.00 - Encounter for general adult medical examination without abnormal findings Category: Medical Plan: Patient is advised to eat healthy, keep well hydrated, keep active and have adequate sleep. (2) Colon cancer screening: Code(s): Z12.11 - Encounter for screening for malignant neoplasm of colon Category: Medical Plan: Patient is reminded about Cologuard testing (3) Impaired glucose tolerance: Code(s): R73.02 - Impaired glucose tolerance (oral) Category: Medical Plan: Decrease the amount of carbohydrate intake, pasta, bread, rice and potatoes are all sugar and that is aside from all the sweet stuff, remember that fruits are good but they are Sweet also. (4) Overweight (BMI 25.0-29.9): Code(s): E66.3 - Overweight Category: Medical Plan: Diet and exercise (5) Hypertension: Code(s): I10 - Essential (primary) hypertension Category: Medical Qualifiers: Hypertension type: essential hypertension Qualified Code(s): I10 - Essential (primary) hypertension Plan: Continue with blood pressure medication. Decrease salt intake and exercise patient on lisinopril hydrochlorothiazide 20/25 once a day (6) Hypercholesterolemia: Code(s): E78.00 - Pure hypercholesterolemia, unspecified Category: Medical Plan: Avoid fried foods, chicken skin, eggs, butter margarine, pastries and meat. Be it pork or beef they have a lot of cholesterol Orders: Orders Hemoglobin A1c Today R73.02 - Impaired glucose tolerance (oral) Comprehensive Met. Panel Today R73.02 - Impaired glucose tolerance (oral) Complete Blood Count Auto Diff Today I10 - Essential (primary) hypertension Free T4 (Free Thyroxine) Today I10 - Essential (primary) hypertension Thyroid Stimulating Hormone Today I10 - Essential (primary) hypertension Lipid Panel Today E78.00 - Pure hypercholesterolemia, unspecified, I10 - Essential (primary) hypertension Vitamin B12 and Folate Today I10 - Essential (primary) hypertension Prostate Specific Antigen Scr Today I10 - Essential (primary) hypertension Referrals Cologuard Test Z12.11 - Encounter for screening for malignant neoplasm of colon
[2025-07-18 08:54] VITALS: BMI 28.5
--- NOTE | 2025-07-18 08:54 | AM.OFFVISMDC ---
Intake Vital Signs 07/18/25 08:37 07/18/25 08:54 Height 5 ft 7.5 in Weight 185 lb BMI 28.5 28.5 BP 124/68 Blood Pressure Location Lt brachial Position Sitting Pulse 83 Pulse Source Pulse Oximeter Pulse Oximetry (%) 97 Oxygen Delivery Method Room Air Intake Visit Reasons: SWV Allergies No Known Allergies Allergy (Verified 07/18/25 08:37) Medication List - Last Reconciled 07/18/25 by Rodolfo Coles MD ceramides 1,3,3-JY-lqwikmetmgc (CeraVe Foaming Facial topical cleanser) 1 appl topical BID cetirizine (Zyrtec) 10 mg PO DAILY PRN lisinopril-hydrochlorothiazide 20-25 mg 1 tab PO DAILY 90 days multivitamin 1 tab PO DAILY triamcinolone acetonide 0.1% 1 appl topical DAILY PFSH Medical History (Updated 07/14/24 @ 18:19 by Rodolfo Coles MD) Screening for prostate cancer Left flank discomfort Tick bite Upper respiratory infection Impaired glucose tolerance Hypertension Hypercholesterolemia Renal calculi Rotator cuff tear Surgical History History of elbow surgery History of repair of rotator cuff Family History Father Leukemia Mother No problems noted. Maternal Grandfather Myocardial infarction CVD (cardiovascular disease) Social History (Updated 07/18/25 @ 09:03 by Rodolfo Coles MD) Housing: House Alcohol intake: current Alcohol intake frequency: a few times a month Alcohol type: beer Comment: 1 beer QOD, (1 beer a week, wine 4 days a week-07/2025) Patient Tobacco Use Status: Current someday Tobacco user Tobacco use type: Pipe Years Smoked: occ 2-3 x a day once a week e-Cigarette/Vaping Use: Never Used Second Hand Smoke Exposure: Yes service: No Current occupational status: retired Cognitive needs: No Hearing needs: No Vision needs: Yes (glasses) Review of Systems Const Denies poor appetite and Denies weakness Eyes Denies no additional complaints ENT Reports Normal hearing present, Denies dizziness, Denies nasal congestion, Denies tinnitus and Denies sore throat Card Denies chest pain, Denies syncope, Denies rapid heart rate and Denies dyspnea Resp Denies cough and Denies dyspnea GI Denies change in stool character, Reports constipation, Denies diarrhea, Denies nausea and Denies vomiting Denies dysuria and Denies urinary frequency Neuro Reports Normal hearing present, Denies confusion, Denies dizziness, Denies syncope and Denies weakness Psych Denies confusion Physical Exam Vital Signs: Last Vital Signs Pulse 83 07/18/25 08:37 BP 124/68 07/18/25 08:37 Pulse Ox 97 07/18/25 08:37 Oxygen Delivery Method Room Air 07/18/25 08:37 BMI result Body Mass Index 28.5 Const General: No confusion Orientation/consciousness: No confusion HEENT Head: Yes normocephalic Ears: external ears normal and TM's normal bilaterally Face and sinus: Yes normal facial exam Mouth: moist mucous membranes Throat: Yes tonsils normal Eyes Conjunctivae: conjunctivae normal Pupils: Equal, round and reactive pupils present and Pupil accommodation reflex normal Direct Ophthalmoscopy: normal light reflex Neck Neck: No lymphadenopathy Thyroid: Thyroid normal Chest Chest palpation & inspection: normal inspection of the chest Resp Effort & Inspection: normal respiratory effort and no audible wheezes Auscultation: clear to auscultation bilaterally, no crackles, no wheezes and lung sounds not diminished Cardio Rate: regular rate Rhythm: regular rhythm Peripheral pulses: radial pulses present and dorsalis pedis present GI Other: guaiac negative, prostate N Palpation (GI): no masses Auscultation: normal bowel sounds and normoactive bowel sounds Male General Exam: Yes normal external exam Skin General skin exam: no rashes or lesions noted Rashes: no rashes Neuro General: No confusion Cranial nerves: Yes Equal, round and reactive pupils present and Yes Normal hearing present Cognition (Neuro): normal cognition Gait exam (Neuro): Normal gait present Motor exam (neuro): 5/5 motor strength present throughout Deep tendon reflexes (DTR's): Right brachioradialis reflex intensity grade: 2+, Left brachioradialis reflex intensity grade: 2+, Right patellar reflex intensity grade: 2+ and Left patellar reflex intensity grade: 2+ Extrem General: No edema Assessment & Plan Assessment & Plan (1) Annual wellness visit: Code(s): Z00.00 - Encounter for general adult medical examination without abnormal findings Plan: Patient is advised to eat healthy, keep well hydrated, keep active and have adequate sleep. (2) Colon cancer screening: Code(s): Z12.11 - Encounter for screening for malignant neoplasm of colon Plan: Reminded about colon cancer screening. (3) Impaired glucose tolerance: Code(s): R73.02 - Impaired glucose tolerance (oral) Plan: Decrease the amount of carbohydrate intake, pasta, bread, rice and potatoes are all sugar and that is aside from all the sweet stuff, remember that fruits are good but they are Sweet also. (4) Overweight (BMI 25.0-29.9): Code(s): E66.3 - Overweight Plan: Diet and exercise (5) Hypertension: Code(s): I10 - Essential (primary) hypertension Qualifiers: Hypertension type: essential hypertension Qualified Code(s): I10 - Essential (primary) hypertension Plan: Continue with blood pressure medication. Decrease salt intake and exercise (6) Hypercholesterolemia: Code(s): E78.00 - Pure hypercholesterolemia, unspecified Plan: Avoid fried foods, chicken skin, eggs, butter margarine, pastries and meat. Be it pork or beef they have a lot of cholesterol LDL goal of less than 130 and triglyceride of less than 150. Will repeat blood work Plan History of Present Illness The patient is a 75-year-old male presenting for an annual wellness visit. He has a history of impaired glucose tolerance, hypertension, and hypercholesterolemia. The patient has been following up with dermatology for eczema, which was last evaluated in May 2025. He has been treated with triamcinolone and reports occasional use of steroid and UV light therapy for flare-ups. The patient reports a heart murmur, which has been noted during previous examinations. He denies any episodes of dizziness or near syncope associated with the murmur. He has early signs of glaucoma and is under the care of [facility], where he receives regular eye examinations. The patient is due for a Cologuard test, having had a negative result in 2020. He is reminded of the importance of this preventative screening measure. Health Maintenance - Colon cancer screening with Cologuard test due - Regular eye examinations for glaucoma monitoring - Blood pressure management with lisinopril hydrochlorothiazide - Cholesterol management plan discussed - Encouraged to maintain a healthy diet and exercise regimen - Advised to consider shingles vaccination Social History - Alcohol use: Consumes a beer weekly and wine four times a week - Tobacco use: Occasionally smokes a pipe, with a pouch of tobacco lasting two months - Exercise: Engages in regular physical activity, including running and participating in [email or web address] club events - Diet: Consumes fresh fruit and yogurt regularly, but reports difficulty losing weight Review of Systems - Cardiovascular: Denies chest pain, orthopnea, or syncope - Respiratory: Denies dyspnea or cough - Neurological: Denies dizziness, headaches, or balance issues - Gastrointestinal: Denies nausea, vomiting, or changes in bowel habits - Genitourinary: Denies dysuria or hematuria - Musculoskeletal: Reports full range of motion in shoulder, no pain - Dermatological: Reports eczema flare-ups managed with topical treatments Physical Exam General: Cooperative, healthy appearing, comfortable, no acute distress and well developed Orientation: Patient oriented x3 Limitations: No limitations Head: Normal to inspection Ears: Hearing grossly normal bilaterally, patient uses hearing aids but not during work Nose: Normal external nose present, some irritation noted Face and sinus: Normal facial exam Eyes: Appearance normal, both eyes and all related structures Neck: Normal visual inspection and Yes full ROM Respiratory: Normal respiratory effort and able to speak in complete sentences. Clear to auscultation bilaterally Cardiovascular: Regular rate and rhythm. Normal S1 and S2, murmur noted but longstanding and not problematic GI: Normal to inspection. Soft to palpation and nontender Skin: No rashes or lesions noted, patient has eczema treated with triamcinolone and UV light Neuro: Patient oriented x3 Extremities: Normal to inspection, previous rotator cuff surgery with occasional clicking but full range of motion restored Results - Labs: Normal blood count, electrolytes, creatinine 1.14, blood sugar 106, normal hemoglobin A1c, liver function normal - Cholesterol: LDL 134 - Vitamins: B12, folic acid, thyroid within normal limits Plan Patient was informed and verbally consented to the use of an ambient scribe for clinic note documentation during this visit. 1. Impaired Glucose Tolerance The patient has impaired glucose tolerance, with a blood sugar level of 106 and normal hemoglobin A1c noted in the last lab results. He is advised to maintain a healthy diet and exercise regimen to manage this condition. 2. Hypertension The patient is on lisinopril hydrochlorothiazide 20/25 mg once daily for hypertension management. Blood pressure control is emphasized as part of his ongoing treatment plan. 3. Hypercholesterolemia The patient's LDL cholesterol is 134, and a cholesterol management plan is discussed. 4. Eczema The patient is treated with triamcinolone and occasionally uses steroid and UV light therapy for eczema flare-ups. 5. Heart Murmur A heart murmur is noted, but the patient denies dizziness or syncope. 6. Early Signs Of Glaucoma The patient is under regular monitoring for early signs of glaucoma at [facility]. 7. Preventative Care: Colon Cancer Screening With Stool Test The patient is due for a Cologuard test, with a previous negative result in 2020. Discussion Notes During the visit, I discussed the importance of maintaining a healthy lifestyle, including diet and exercise, to manage impaired glucose tolerance and hypertension. We reviewed the patient's current medications, including lisinopril hydrochlorothiazide for blood pressure control and triamcinolone for eczema management. I emphasized the need for regular eye examinations due to early signs of glaucoma and discussed the upcoming Cologuard test for colon cancer screening. Patient Instructions - Continue taking lisinopril hydrochlorothiazide as prescribed for blood pressure management. - Use triamcinolone cream as needed for eczema flare-ups. - Schedule and complete the Cologuard test for colon cancer screening. - Maintain a healthy diet and regular exercise routine. - Attend regular eye examinations for glaucoma monitoring. - Consider receiving the shingles vaccine. Orders: Orders Hemoglobin A1c Today R73.02 - Impaired glucose tolerance (oral) Comprehensive Met. Panel Today R73.02 - Impaired glucose tolerance (oral) Complete Blood Count Auto Diff Today I10 - Essential (primary) hypertension Free T4 (Free Thyroxine) Today I10 - Essential (primary) hypertension Thyroid Stimulating Hormone Today I10 - Essential (primary) hypertension Lipid Panel Today E78.00 - Pure hypercholesterolemia, unspecified, I10 - Essential (primary) hypertension Vitamin B12 and Folate Today I10 - Essential (primary) hypertension Prostate Specific Antigen Scr Today I10 - Essential (primary) hypertension Referrals Cologuard Test Z12.11 - Encounter for screening for malignant neoplasm of colon Coding Level of Care Code Medicare Subsequent (G0439) Diagnoses Annual wellness visit Z00.00 Colon cancer screening Z12.11 Impaired glucose tolerance R73.02 Overweight (BMI 25.0-29.9) E66.3 Essential hypertension I10 Hypertension type: essential hypertension Hypercholesterolemia E78.00
--- OUTSIDE RECORDS SUMMARY | 2025-07-18 09:12 | XMS_ITS | Clinical Summary ---
Author Organization [facility] Address [address] [place] [id number] Phone Care Team Providers Care Fulfillment Mail Clerk Name Role Phone Rodolfo Coles MD Primary Care Provider [phone] Allergies No known active allergies Medications lisinopril-hydro CHLOROthiazide (PRINZIDE,ZESTOR ETIC) 20-25 mg per tablet Take 1 tablet by mouth every morning. 02/20/2024 Active predniSONE (DELTASONE) 20 MG tablet Take 3 pills orally for 3 days, 2 pills for 3 days, 1 pill for 5 days 20 tablet 04/06/2024 Active Active Problems No known active problems Social History Tobacco Use Types Packs/Day Years Used Date Smoking Tobacco: Former Cigarettes Smokeless Tobacco: Never Education Answer Date Recorded Are you interested in more education? Not on asael e 04/07/2024 Are you concerned about learning? Not on file 04/07/2024 No 04/07/2024 No 04/07/2024 Digital Access Answer Date Recorded No 04/07/2024 No 04/07/2024 Reliable internet access at home? Not on file 04/07/2024 Device with a working camera? Not on file Sex and Gender Information Value Date Recorded Sex Assigned at Not on file Legal Sex Male 8:33 PM EDT Gender Identity Not on file Sexual Orientation Not on file Last Filed Vital Signs Vital Sign Reading Time Taken Comments Blood Pressure 115/66 04/06/2024 7:19 PM EDT Pulse 93 04/06/2024 7:19 PM EDT Temperature 36.7 C (98.1 F) 04/06/2024 7:19 PM EDT Respiratory Rate 16 04/06/2024 7:19 PM EDT Oxygen Saturation 96% 04/06/2024 7:19 PM EDT Inhaled Oxygen Concentration - - Weight 83.9 kg (185 lb) 04/06/2024 7:19 PM EDT Height 175.3 cm (5' 9 ) 04/06/2024 7:19 PM EDT Body Mass Index 27.32 04/06/2024 7:19 PM EDT Plan of Treatment Health Maintenance Due Date Last Done Comments CREATININE LEVEL 1951 LIPID PANEL 1951 POTASSIUM LEVEL 1951 DEPRESSION SCREENING 1963 SMOKING Hx and SMOKELESS TOBACCO SCREENING 1964 HEPATITIS C SCREENING 1969 COLOGUARD 1996 COLONOSCOPY 1996 COLORECTAL CANCER SCREENING 1996 FIT TEST 1996 FOBT 1996 SIGMOIDOSCOPY 1996 VIRTUAL COLONOSCOPY 1996 ZOSTER VACCINES (1 of 2) 2001 ABDOMINAL AORTIC ANEURYSM (AAA) SCREENING 2016 INFLUENZA VACCINE (#1) 2025 , 11/07/2019, 09/08/2017 COVID-19 VACCINE (4 - 2024-2 6 season) 2025 09/25/2021, 01/28/2021, 01/07/2021 RSV VACCINE (1 - 1-dose 75+ series) 2026 Adult Td,Tdap Booster 01/07/2029 01/07/2019 PNEUMOCOCCAL VACCINES (50+ years) Completed 07/07/2022, 07/06/2017 HEPATITIS A VACCINES Aged Out No long er eligible based on patient's age to complete this topic HIB VACCINES Aged Out No longer eligi ble based on patient's age to complete this topic MENINGOCOCCAL VACCINES (ACWY) Aged Out No longer eligible based on patient's age to complete this topic MENINGOCOCCAL VACCINES (B) Aged Out N o longer eligible based on patient's age to complete this topic Medical Devices Not on file Insurance [employer] MEDEX SUPPLEMENT MEDICARE PART A & B [employer] MEDEX SUPPLEMENT MEDICARE PART A & B [employer] MEDEX SUPPLEMENT MEDICARE PART A & B [employer] MEDEX SUPPLEMENT MEDICARE PART A & B [employer] MEDEX SUPPLEMENT MEDICARE PART A & B Member Subscriber Plan / Payer ( fective 2017-Present) Name:Phillip Barger Member ID:[id number] Relation to Subscriber:Self Name:Phillip Barger Subscriber ID:[id number] Payer ID:[id number] Group ID:Not on file Type:Medicare Address: [facility] [email or web address] [facility] [address] [place] [address] [employer] MEDEX SUPPLEMENT MEDICARE PART A & B Care Teams Fulfillment Mail Clerk Relationship Specialty Start Date End Date Sanket, Rodolfo Finch MD [address] [place] [phone] PCP - General Internal Medicine 04/06/24 Additional Source Comments The information contained in this document represents components of the legal health record. It is not the complete legal health record.[facility]
== END 2025-07-18 09:18 | disposition home or self-care (01) ==
PROVIDERS: PCP Internal Medicine; Visit Provider Internal Medicine
DX: Z00.00 Encounter for general adult medical examination without abnormal findings (principal); R73.02 Impaired glucose tolerance (oral); E66.3 Overweight; Z68.28 Body mass index [BMI] 28.0-28.9, adult; Z12.11 Encounter for screening for malignant neoplasm of colon; I10 Essential (primary) hypertension; E78.00 Pure hypercholesterolemia, unspecified